=== PATIENT | female | born 1995 | race Caucasian/White ===

== ENCOUNTER 2017-04-13 18:46 | Emergency (ER) | payer BC, OTHER ==
--- NOTE | 2017-04-13 19:48 | ED Physician Documentation ---
PD HPI HEENT - Stated complaint Stated Complaint: NOSE PX - Chief complaint Chief Complaint: Heent - History obtained from History obtained from: Patient - History of Present Illness Timing - onset: Today Timing - details: Abrupt onset (shouldered in nose playing basketball. No LOC. Pain at nose with brief nosebleed.), Still present Location: Nose Associated symptoms: No: Congestion, Rhinorrhea, Swollen nodes Similar symptoms before: Has not had sx before Recently seen: Not recently seen Review of Systems Eyes: denies: Loss of vision, Decreased vision, Photophobia Nose: reports: Epistaxis (brief). denies: Rhinorrhea / runny nose, Congestion PD PAST MEDICAL HISTORY - Past Medical History Past Medical History: No Respiratory: Asthma - Past Surgical History Past Surgical History: No - Present Medications Home Medications: Ambulatory Orders Medication Instructions Recorded Confirmed Control Pills ORAL DAILY 05/23/15 05/23/15 Cetirizine [ZyrTEC] 1 tab PO DAILY 04/13/17 04/13/17 - Allergies Allergies/Adverse Reactions: Allergies Allergy/AdvReac Type Severity Reaction Status Date / Time amoxicillin Allergy Unknown Verified 04/13/17 18:50 - Social History Does the pt smoke?: No Smoking Status: Never smoker Does the pt drink ETOH?: No Does the pt have substance abuse?: No - Immunizations Immunizations are current?: Yes PD ED PE NORMAL - Vitals Vital signs reviewed: Yes - General General: Alert and oriented X 3, No acute distress, Well developed/nourished - HEENT HEENT: PERRL, EOMI, Moist mucous membranes, Pharynx benign, Other (left anterior nare with focal vessel clot of blood, no active bleeding. No septal hematoma. Nose is tender on nasal bone. No obvious defomrity but does have some swelling. ) - Neck Neck: Supple, no meningeal sign, No bony TTP, No adenopathy - Cardiac Cardiac: RRR, No murmur Results - Vitals Vitals: Oxygen O2 Source Room air - Rads (name of study) nasal Radiology: Prelim report reviewed (normal), EMP read contemporaneously (I see a hairline fracture nondisplaced, mid nasal bone. ) PD MEDICAL DECISION MAKING - ED course Complexity details: reviewed results (I see a hiarline crack at mid nasal bone, nondisplaced. ), considered differential, d/w patient Departure - Departure Disposition: 01 Home, Self Care Clinical Impression: Nasal bone fracture Qualifiers: Encounter type: initial encounter Fracture type: closed Qualified Code(s): S02.2XXA - Fracture of nasal bones, initial encounter for closed fracture Condition: Stable Record reviewed to determine appropriate education?: Yes Instructions: ED Fx Nasal Conf W X Ray Follow-Up: Moraima Rice PA-C [Primary Care Provider] - Comments: Tylenol and/or Ibuprofen for pains. Ice/cool towels to the nose tonight. You might get some bruising around nose and lower eyelids from this. Normal activity is okay if feeling good otherwise (not nauseated, not off balance, etc) . This is not displaced and should hela okay with time (2-3 weeks). Discharge Date/Time: 04/13/17 20:37
[2017-04-13] MEDS ORDERED: IBUPROFEN 600 MG TABLET PO STA (20:26)
[2017-04-13] MEDS ORDERED: ACETAMINOPHEN 325 MG TABLET PO STA (20:26)
[2017-04-13] MEDS ORDERED: ONDANSETRON ODT 4 MG TABLET TL STA (20:26)
[2017-04-13] MEDS ORDERED: ACETAMINOPHEN 325 MG TABLET PO ONE (20:33)
[2017-04-13 20:38] VITALS: BP 132/71
--- NOTE | 2017-04-13 20:49 | XRAY Preliminary Report ---
Exam: XR Nasal Bones IMPRESSION: Normal nasal bone radiography. [facility] SITE ID: [id number]
--- NOTE | 2017-04-13 20:59 | XRAY Report ---
EXAM: NASAL BONES RADIOGRAPHY EXAM DATE: 04/13/2017 08:11 PM. CLINICAL HISTORY: Struck in nose during a basketball game. Pain. COMPARISONS: None. TECHNIQUE: 3 views. FINDINGS: Bones: Normal. No fractures or bone lesions. Sinuses: Normal. No opacities or fluid levels. Other: Normal. No soft tissue swelling. IMPRESSION: Normal nasal bone radiography. [facility] Referring Provider Line: [phone] SITE ID: [id number]
== END 2017-04-13 20:37 | disposition home or self-care (01) ==
LOC: ED 18:46
DX: S02.2XXA Fracture of nasal bones, initial encounter for closed fracture (principal); W51.XXXA Accidental striking against or bumped into by another person, initial encounter; Y93.67 Activity, basketball
CPT/HCPCS: 70160; 99283; A9270

== ENCOUNTER 2018-04-17 11:39 | Outpatient (CLI) | payer OTHER ==
[2018-04-17 18:59] LABS: ALBUMIN 3.6 g/dL (3.2-5.5); ALBUMIN/GLOBULIN RATIO 1.1 (1.0-2.2); BILIRUBIN,TOTAL 0.7 mg/dL (0.2-1.0); CALCIUM 8.8 mg/dL (8.5-10.3); CREATININE 0.6 mg/dL (0.4-1.0); TOTAL PROTEIN 6.8 g/dL (6.7-8.2)
[2018-04-17 19:03] LABS: BASOPHILS # (AUTO) 0.1 10^3/uL (0.0-0.1); EOSINOPHILS # (AUTO) 0.3 10^3/uL (0.0-0.7); EOSINOPHILS % (AUTO) 4.7 %; HGB - HEMOGLOBIN 12.1 g/dL (12.0-16.0); LYMPHOCYTES # (AUTO) 1.8 10^3/uL (1.5-3.5); LYMPHOCYTES % (AUTO) 31.3 %; MEAN CORPUSCULAR HEMOGLOBIN 27.3 pg (27.0-31.0); MEAN CORPUSCULAR HGB CONC 32.3 g/dL (32.0-36.0); MEAN CORPUSCULAR VOLUME 84.4 fL (81.0-99.0); MEAN PLATELET VOLUME 11.8 fL (7.9-10.8); MONOCYTES # (AUTO) 0.4 10^3/uL (0.0-1.0); MONOCYTES % (AUTO) 6.8 %; NEUTROPHILS # (AUTO) 3.3 10^3/uL (1.5-6.6); NEUTROPHILS % (AUTO) 56.2 %; PLT - PLATELET COUNT 144 10^3/uL (130-450); RED BLOOD COUNT 4.43 10^6/uL (4.20-5.40); RED CELL DISTRIBUTION WIDTH 14.8 % (12.0-15.0); WHITE BLOOD COUNT 5.9 x10^3/uL (4.8-10.8)
== END 2018-04-17 11:40 | disposition home or self-care (01) ==
LOC: LAB.WCP 11:39
PROVIDERS: ATTEND Physician Assistant
DX: Z00.00 Encounter for general adult medical examination without abnormal findings (principal); N92.0 Excessive and frequent menstruation with regular cycle
CPT/HCPCS: 36415; 80053; 84443; 85025

== ENCOUNTER 2019-12-13 10:10 | Outpatient (CLI) | payer BC, OTHER ==
[2019-12-13 19:03] LABS: BASOPHILS # (AUTO) 0.1 10^3/uL (0.0-0.1); BASOPHILS % (AUTO) 1.4 %; EOSINOPHILS # (AUTO) 0.2 10^3/uL (0.0-0.7); EOSINOPHILS % (AUTO) 5.6 %; HGB - HEMOGLOBIN 12.7 g/dL (12.0-16.0); LYMPHOCYTES # (AUTO) 1.8 10^3/uL (1.5-3.5); LYMPHOCYTES % (AUTO) 40.8 %; MEAN CORPUSCULAR HEMOGLOBIN 27.5 pg (27.0-31.0); MEAN CORPUSCULAR HGB CONC 31.8 g/dL (32.0-36.0); MEAN CORPUSCULAR VOLUME 86.4 fL (81.0-99.0); MONOCYTES # (AUTO) 0.5 10^3/uL (0.0-1.0); NEUTROPHILS # (AUTO) 1.8 10^3/uL (1.5-6.6); NEUTROPHILS % (AUTO) 41.2 %; PLT - PLATELET COUNT 139 10^3/uL (130-450); RED BLOOD COUNT 4.62 10^6/uL (4.20-5.40); RED CELL DISTRIBUTION WIDTH 14.2 % (12.0-15.0); WHITE BLOOD COUNT 4.3 x10^3/uL (4.8-10.8)
[2019-12-13 19:07] LABS: MEAN PLATELET VOLUME 14.1 fL (7.9-10.8)
[2019-12-13 20:09] LABS: RHEUMATOID FACTOR NEGATIVE (Negative)
[2019-12-16 13:10] LABS: ANA SCREEN NEGATIVE (NEGATIVE)
== END 2019-12-13 23:59 | disposition home or self-care (01) ==
LOC: LAB.WCP 10:10
PROVIDERS: ATTEND Physician Assistant Medical
DX: R53.83 Other fatigue (principal); M79.10 Myalgia, unspecified site
CPT/HCPCS: 36415; 81599; 82306; 82607; 84443; 85025; 85651; 86038; 86140; 86200; 86430

== ENCOUNTER 2020-05-20 10:58 | Outpatient (CLI) | payer BC | END 2020-05-20 23:59 | disposition home or self-care (01) | LOC: LAB.WCP 10:58 | PROVIDERS: ATTEND Physician Assistant Medical | DX: Z71.89 Other specified counseling (principal) | CPT/HCPCS: 36415; 86317 ==

== ENCOUNTER 2021-04-06 20:26 | Outpatient (CLI) | payer BC ==
--- NOTE | 2021-04-07 08:37 | Ultrasound Report ---
PROCEDURE: Pelvic w/Transvaginal INDICATIONS: IUD SURVEILLANCE TECHNIQUE: Real-time scanning was performed of the pelvic organs, with image documentation. Additional endovagi nal scanning was necessary due to incomplete visualization of the adnexal and endometrial structures by transabdominal scanning. COMPARISON: None. FINDINGS: No pathologic free abdominal or pelvic fluid. Uterus: Uterus is normal in size at 3.0 x 3.8 x 6.7 cm. The endometrium measures 5.5 mm in combined thickness. Centrally positioned IUD is seen within the endometrial canal. Ovaries: Not identified on the left and normal in appearance on the right. IMPRESSION: IUD in normal position. Nonvisualization of the left ovary, normal appearing right ovary. Reviewed by: Bryce Rene MD on 04/07/2021 8:35 AM PDT Approved by: Bryce Rene MD on 04/07/2021 8:35 AM PDT Station ID: [id number]
== END 2021-04-06 20:27 | disposition home or self-care (01) ==
LOC: DI 20:26
PROVIDERS: ATTEND Nurse Practitioner Obstetrics & Gynecology
DX: Z30.431 Encounter for routine checking of intrauterine contraceptive device (principal)

== ENCOUNTER 2024-03-22 15:39 | Outpatient (CLI) | payer BC, MEDICAID | END 2024-03-22 15:40 | disposition home or self-care (01) | LOC: LAB 15:39 | DX: Z00.00 Encounter for general adult medical examination without abnormal findings (principal) | CPT/HCPCS: 81599 ==